=== PATIENT | female | born 1980 | race Caucasian/White ===

== ENCOUNTER → 2016-11-06 | Outpatient (CLI) | payer MEDICAID ==
[~2016-11-06] MED LIST: AMOXICILLIN 50500 MG PO; NORCO 325 MG-51 TAB PO; PEN-VEE K500 MG PO
== END ==
LOC: COL.RAD 10:23
DX: K80.20 Calculus of gallbladder without cholecystitis without obstruction (principal)

== ENCOUNTER → 2016-12-16 | Outpatient (CLI) | payer MEDICAID | LOC: MC.RAD 12:58 | DX: N63 Unspecified lump in breast (principal) ==

== ENCOUNTER 2016-12-28 00:18 | Emergency (ER) | payer MEDICAID ==
[~2016-12-28] VITALS: Ht 152.4 cm; Wt 89.8 kg
[2016-12-28 00:21] VITALS: TEMP 98.3
[2016-12-28] MEDS ORDERED: AMOXICILLIN 50500 MG PO (00:47)
[2016-12-28] MEDS ORDERED: NORCO 325 MG-51 TAB PO (00:47)
[2016-12-28 01:04] VITALS: BP 138/71; PULSE 71
== END 2016-12-28 01:04 | disposition home or self-care (01) ==
LOC: COL.ER 00:18
DX: K04.7 Periapical abscess without sinus (principal); K05.00 Acute gingivitis, plaque induced

== ENCOUNTER 2017-04-15 11:52 | Emergency (ER) | payer MEDICAID ==
[~2017-04-15] VITALS: Ht 147.3 cm; Wt 87.7 kg
[~2017-04-15 11:52] MED LIST changes: -PEN-VEE K500 MG PO
[2017-04-15 11:53] VITALS: BP 137/65; PULSE 66; TEMP 98.8
[2017-04-15] MEDS ORDERED: PEN-VEE K500 MG PO (12:20)
[2017-04-15] MEDS ORDERED: NORCO 325 MG-51 TAB PO (12:20)
== END 2017-04-15 12:28 | disposition home or self-care (01) ==
LOC: COL.ER 11:52
DX: K08.89 Other specified disorders of teeth and supporting structures (principal)

== ENCOUNTER 2018-03-03 20:27 | Emergency (ER) | payer MEDICAID ==
[~2018-03-03] VITALS: Ht 147.3 cm; Wt 87.7 kg
[~2018-03-03 20:27] MED LIST changes: +PEN-VEE K500 MG PO
[2018-03-03 20:29] VITALS: BP 128/73; TEMP 98.5
[2018-03-03 22:33] VITALS: PULSE 74
== END 2018-03-03 22:33 | disposition home or self-care (01) ==
LOC: COL.ER 20:27
DX: G43.909 Migraine, unspecified, not intractable, without status migrainosus (principal); Z90.49 Acquired absence of other specified parts of digestive tract
CPT/HCPCS: J1885

== ENCOUNTER 2020-05-12 19:11 | Emergency (ER) | payer MEDICAID ==
[~2020-05-12] VITALS: Ht 147.3 cm; Wt 90.9 kg
[2020-05-12 19:20] VITALS: BP 110/69; TEMP 98.9
[2020-05-12] MEDS ORDERED: ANTI-DIARRHEAL2 MG PO (19:43)
[2020-05-12 20:04] VITALS: PULSE 84
== END 2020-05-12 20:07 | disposition home or self-care (01) ==
LOC: COL.ER 19:11
DX: R19.7 Diarrhea, unspecified (principal)

== ENCOUNTER → 2020-10-17 | Outpatient (CLI) | payer MEDICAID ==
[~2020-10-17] MED LIST changes: +ANTI-DIARRHEAL2 MG PO
== END ==
LOC: COL.RAD 08:45
DX: G93.5 Compression of brain (principal)
CPT/HCPCS: A9585

== ENCOUNTER 2021-06-01 07:06 | Day surgery (SDC) | payer MEDICAID ==
[~2021-06-01] VITALS: Ht 147.3 cm; Wt 93.5 kg
[2021-06-01 07:57] VITALS: BP 121/54; PULSE 85; TEMP 98.4
[2021-06-01] MEDS ORDERED: CLARITIN 1010 MG/TAB PO (08:08)
[2021-06-01] MEDS ORDERED: AMITRIPTYLINE H25 M1 PO (08:08)
[2021-06-01] MEDS ORDERED: PROFERRIN ES12 MG PO (08:09)
[2021-06-01 08:50] VITALS: BP 108/66; PULSE 73; TEMP 97.7
--- NOTE | 2021-06-01 08:50 | NUR ---
PATIENT TRANSPORTED PER CART FROM GI SUITE TO BAY 5 ACCOMPANIED BY ENDO RN. PATIENT AMBULATED FROM CART TO CHAIR WITH 2 ASSIST. SLOW STEADY GAIT. MONITORS APPLIED. VSS ON ROOM AIR. DAUGHTER IN ROOM AND ASSIST WITH TRANSLATING INFORMATION. PATIENT TALKS WITH DAUGHTER. VERBAL REPORT RECEIVED.
[2021-06-01 09:00] VITALS: BP 113/83; PULSE 82
--- NOTE | 2021-06-01 09:05 | NUR ---
VSS ON ROOM AIR. PATIENT EATS MUFFIN AND DRINKS COFFEE WITHOUT PROBLEMS. PER DAUGHTER DENIES DISCOMFORT AND NAUSEA. DR AL SPEAKS WITH PATIENT AND DAUGHTER.
[2021-06-01 09:15] VITALS: BP 131/83; PULSE 77
--- NOTE | 2021-06-01 09:25 | NUR ---
VSS ON ROOM AIR. PATIENT TOLERATES FOOD AND DRINK. IV DC'D WITH CATHETER TIP INTACT. PRESSURE AND BANDAGE APPLIED. DISCHARGE INSTRUCTIONS GIVEN VERBAL AND DISCHARGE PACKET PROVIDED. QUESTIONS ANWSERED AND PATIENT AND DAUGHTER VOICED UNDERSTANDING. PATIENT CHANGES INTO STREET CLOTHES 2288 PATIENT DISCHARGED PER WHEEL CHAIR ACCOMPANIED BY AMB RN TO PRIVATE VECHILE DRIVEN BY DAUGHTER.
[2021-06-01 09:30] VITALS: BP 111/79; PULSE 75
== END 2021-06-01 09:37 | disposition home or self-care (01) ==
LOC: SDCO 07:06
DX: K29.30 Chronic superficial gastritis without bleeding (principal); K29.80 Duodenitis without bleeding; B96.81 Helicobacter pylori [H. pylori] as the cause of diseases classified elsewhere; K62.89 Other specified diseases of anus and rectum; K57.30 Diverticulosis of large intestine without perforation or abscess without bleeding; D50.9 Iron deficiency anemia, unspecified; Z90.49 Acquired absence of other specified parts of digestive tract; Z98.51 Tubal ligation status; Z79.899 Other long term (current) drug therapy; Z20.822 Contact with and (suspected) exposure to COVID-19
CPT/HCPCS: J2704; J7030

== ENCOUNTER 2021-10-03 19:15 | Emergency (ER) | payer MEDICAID ==
[~2021-10-03] VITALS: Ht 147.3 cm; Wt 109.1 kg
[~2021-10-03 19:15] MED LIST changes: +AMITRIPTYLINE H25 M1 PO; +CLARITIN 1010 MG/TAB PO; +PROFERRIN ES12 MG PO
[2021-10-03 19:28] VITALS: TEMP 101.7
[2021-10-03 20:21] VITALS: BP 131/70; PULSE 96
== END 2021-10-03 20:26 | disposition home or self-care (01) ==
LOC: COL.ER 19:15
DX: U07.1 COVID-19 (principal)

== ENCOUNTER 2022-10-29 11:15 | Outpatient (RCR) | payer MEDICAID | END 2022-11-12 | disposition home or self-care (01) | LOC: MKS.ESL.PT | DX: G93.5 Compression of brain (principal) ==

== ENCOUNTER 2023-12-27 18:54 | Emergency (ER) | payer MEDICAID ==
[~2023-12-27] VITALS: Ht 172.7 cm; Wt 81.8 kg
[~2023-12-27 18:54] MED LIST changes: +FLEXERIL 1010 MG/TAB PO
[2023-12-27 19:05] VITALS: TEMP 98.2
[2023-12-27 20:23] VITALS: BP 125/86; PULSE 75
== END 2023-12-27 20:23 | disposition home or self-care (01) ==
LOC: COL.ER 18:54
DX: S91.312A Laceration without foreign body, left foot, initial encounter (principal); W29.0XXA Contact with powered kitchen appliance, initial encounter